=== PATIENT | male | born 1985 | race Caucasian/White ===

== ENCOUNTER 2019-10-08 18:02 | Emergency (ER) | payer SELFPAY ==
[~2019-10-08] VITALS: Ht 175.3 cm; Wt 65.9 kg
[2019-10-08 18:10] VITALS: Ht 175.3 cm; Wt 65.9 kg
[2019-10-08] MEDS ORDERED: BENADRYL25 MG PO (18:12)
[2019-10-08] MEDS ORDERED: BAYER ASPIRIN325 MG PO (18:13)
[2019-10-08 18:36] LABS: BASOPHILS 0.9 % (0-2); EOSINOPHILS 1.8 % (0-7); HEMATOCRIT 38.4 % (42.0-54.0); HEMOGLOBIN 13.1 g/dL (13.5-17.5); IMMATURE GRANULOCYTES 0.5 % (0-5); LYMPHOCYTES 42.1 % (15-50); MCH 34.4 pg (26.0-34.0); MCHC 34.1 g/dL (31.0-37.0); MCV 100.8 fL (80.0-100.0); MEAN PLATELET VOLUME 8.7 fL (7.4-10.4); MONOCYTES 15.2 % (2-11); NEUTROPHILS 39.5 % (40-80); PLATELET COUNT 183 10x3/uL (130-400); RBC 3.81 10x6/uL (4.20-6.10); RDW 12.4 % (11.5-14.5); WBC 5.5 10x3/uL (4.8-10.8)
[2019-10-08 18:49] LABS: APTT 30.9 SECONDS (22.8-39.4); CALC OSMOLALITY 276 mosm/kg (275-300); CALCIUM 9.5 mg/dL (8.5-10.1); CARBON DIOXIDE 27.4 mmol/L (21.0-32.0); CHLORIDE - SERUM 100 mmol/L (98-107); CREATININE - SERUM 0.6 mg/dL (0.6-1.3); GLUCOSE 96 mg/dL (74-106); INR 1.09 (0.85-1.17); POTASSIUM - SERUM 3.5 mmol/L (3.5-5.1); PROTIME 13.6 SECONDS (11.6-15.0); SODIUM 138 mmol/L (136-145); UREA NITROGEN 15 mg/dL (7-18); eGFR NON AFRICAN AMERICAN > 90 mL/min (90-120)
[2019-10-08 19:06] LABS: ALBUMIN 4.6 g/dL (3.4-5.0); ALKALINE PHOSPHATASE 94 U/L (46-116); ALT (SGPT) 69 U/L (10-68); BILIRUBIN - TOTAL 0.58 mg/dL (0.2-1.3); CKMB 0.8 U/L (0.0-3.6); CREATINE KINASE 111 UL (21-232)
[2019-10-08 19:10] LABS: PRO BNP 6 pg/mL (0-125); TROPONIN-I < 0.017 ng/mL (0.000-0.060)
[2019-10-08] MEDS ORDERED: VISTARIL25 MG PO (20:24)
[2019-10-08 20:41] VITALS: BP 127/91
== END 2019-10-08 20:42 | disposition home or self-care (01) ==
LOC: D.ER 18:02
PROVIDERS: Family Medicine
DX: F41.9 Anxiety disorder, unspecified (principal); Z98.890 Other specified postprocedural states